=== PATIENT | male | born 1965 | race Two or more races ===

== ENCOUNTER 2021-11-24 12:34 | Emergency (ER) | payer OTHER ==
[2021-11-24 12:47] VITALS: TEMP 98.1; BMI 25.8
[2021-11-24] MEDS ORDERED: ACETAMINOPHEN 1000 MG/100 ML BAG IVPB ONE (13:24)
[2021-11-24] MEDS ORDERED: KETOROLAC TROMETHAMINE 30 MG/1 ML VIAL IVPUSH ONE (13:24)
[2021-11-24] MEDS ORDERED: PANTOPRAZOLE SODIUM 40 MG VIAL IVPB ONE (13:24)
[2021-11-24] MEDS ORDERED: PANTOPRAZOLE SODIUM 40 MG VIAL ONE (13:28)
[2021-11-24] MEDS ORDERED: KETOROLAC TROMETHAMINE 30 MG/1 ML VIAL ONE (13:28)
[2021-11-24] MEDS ORDERED: ACETAMINOPHEN INJECTION 100 ML IVPB ONE (13:28)
[2021-11-24] MEDS ORDERED: PANTOPRAZOLE SODIUM 40 MG/100 ML BAG IVPB ONE (13:30)
[2021-11-24 14:05] LABS: HEMATOCRIT 30.6 % (35.4-49); HEMOGLOBIN 9.6 GM/dL (11.7-16.9); MCH 27.8 pg (25.7-33.7); MCHC 31.5 g/dl (32.0-35.9); MEAN CELL VOLUME 88.2 fl (80-96); MEAN PLT VOLUME 9.4 fl (7.5-11.1); PLATELET COUNT 237 10^3/uL (134-434); RBC 3.47 M/mm3 (4.00-5.60); RDW 18.2 % (11.9-15.9)
[2021-11-24 14:15] LABS: INR 1.3 (0.83-1.09)
[2021-11-24 14:18] LABS: ACTIVATED PTT 32.7 SECONDS (25.2-36.5)
[2021-11-24 14:22] LABS: WHITE BLOOD COUNT 294.5 K/mm3 (4.0-10.0)
[2021-11-24 14:23] LABS: CALCIUM 9.9 mg/dL (8.5-10.1)
[2021-11-24 14:24] LABS: ALBUMIN 4.1 g/dl (3.4-5.0); BLOOD UREA NITROGEN 16.5 mg/dL (7-18); MAGNESIUM 2.5 mg/dL (1.8-2.4)
[2021-11-24 14:27] LABS: CREATININE 1.2 mg/dL (0.55-1.3); PHOSPHOROUS 4.3 mg/dL (2.5-4.9)
[2021-11-24 14:28] LABS: BILIRUBIN,TOTAL 0.7 mg/dL (0.2-1)
[2021-11-24 14:29] LABS: TOT PROT 7.6 g/dl (6.4-8.2)
[2021-11-24 15:40] LABS: ANISOCYTOSIS 1+; MACROCYTOSIS 1+; OVALOCYTE 1+
[2021-11-24 15:51] LABS: BASO % 2.3 % (0-2.0); EOS % 1.2 % (0-4.5); HEMATOCRIT 28.9 % (35.4-49); HEMOGLOBIN 9.2 GM/dL (11.7-16.9); MCH 28.3 pg (25.7-33.7); MCHC 31.8 g/dl (32.0-35.9); MEAN CELL VOLUME 89.1 fl (80-96); MEAN PLT VOLUME 9.5 fl (7.5-11.1); MONO % 4.4 % (3.8-10.2); NEUT % 91.1 % (42.8-82.8); PLATELET COUNT 220 10^3/uL (134-434); RBC 3.24 M/mm3 (4.00-5.60); RDW 18.3 % (11.9-15.9)
[2021-11-24 16:24] LABS: EPI CELLS >36 /uL (0-25.1); HYALINE CASTS 23 /uL (0-3.1); PH,URINE 5.5 (5.0-8.0); URINE APPEARANCE CLOUDY; URINE BACTERIA 4 /uL (0-1359); URINE BILIRUBIN NEGATIVE (NEGATIVE); URINE COLOR YELLOW; URINE GLUCOSE (UA) NEGATIVE (NEGATIVE); URINE KETONE TRACE (NEGATIVE); URINE LEUK ESTERASE NEGATIVE (NEGATIVE); URINE NITRITE NEGATIVE (NEGATIVE); URINE PROTEIN 2+ (NEGATIVE); URINE RBC 3 /uL (0-23.9); URINE WBC 19 /uL (0-25.8)
[2021-11-24 16:26] LABS: WHITE BLOOD COUNT 288.8 K/mm3 (4.0-10.0)
[2021-11-24] MEDS ORDERED: ALLOPURINOL 300 MG TABLET (FP) PO ONE (16:28)
[2021-11-24 16:52] LABS: URIC ACID 8.4 mg/dL (2.6-7.2)
[2021-11-24] MEDS ORDERED: SODIUM CHLORIDE 0.9% 500 ML INFUS.BAG IV ONE (17:22)
[2021-11-24 17:45] LABS: PLATELET ESTIMATE ADEQUATE; SMUDGE CELLS 1
[2021-11-24 17:51] LABS: ANISOCYTOSIS 1+
[2021-11-24 18:16] VITALS: BP 112/65; PULSE 87
== END 2021-11-24 18:16 | disposition short-term general hospital (02) ==
LOC: JER 12:34
PROC: 3E033GC Introduction of Other Therapeutic Substance into Peripheral Vein, Percutaneous Approach (ICD-10-PCS; principal; 2021-11-24)
DX: C95.90 Leukemia, unspecified not having achieved remission (principal)
CPT/HCPCS: 36415; 74177-TC; 80053; 81003; 83615; 83690; 83735; 84100; 84443; 84484; 84550; 85025; 85384; 85610; 85730; 93005; 93010; 99285-25; Q9967

== ENCOUNTER 2022-10-11 18:39 | Emergency (ER) | payer OTHER ==
[2022-10-11 18:58] VITALS: BP 159/67; PULSE 77; RESP 20; TEMP 99.1; BMI 25.8
[2022-10-11] MEDS ORDERED: KETOROLAC TROMETHAMINE 15 MG/ML VIAL IVPUSH ONE (19:41)
[2022-10-11] MEDS ORDERED: KETOROLAC TROMETHAMINE 15 MG/ML VIAL ONE (19:59)
[2022-10-11 20:40] LABS: BASO % 0.2 % (0-2.0); EOS % 0.2 % (0-4.5); HEMATOCRIT 43.2 % (35.4-49); HEMOGLOBIN 14.3 GM/dL (11.7-16.9); LYMPH % 5.4 % (8-40); MCH 29.3 pg (25.7-33.7); MCHC 33.1 g/dl (32.0-35.9); MEAN CELL VOLUME 88.8 fl (80-96); MEAN PLT VOLUME 9.8 fl (7.5-11.1); MONO % 2.1 % (3.8-10.2); NEUT % 92.1 % (42.8-82.8); PLATELET COUNT 172 10^3/uL (134-434); RBC 4.87 M/mm3 (4.00-5.60); RDW 13.5 % (11.9-15.9)
[2022-10-11 20:46] LABS: INR 1.04 (0.83-1.09); PROTHROMBIN TIME (PATIENT) 12.1 SEC (9.7-13.0)
[2022-10-11 20:49] LABS: ACTIVATED PTT 29.8 SECONDS (25.2-36.5)
[2022-10-11 21:00] LABS: CALCIUM 9.3 mg/dL (8.5-10.1)
[2022-10-11 21:01] LABS: ALBUMIN 3.9 g/dl (3.4-5.0)
[2022-10-11 21:04] LABS: CREATININE 0.9 mg/dL (0.55-1.3)
[2022-10-11 21:05] LABS: BILIRUBIN,TOTAL 0.7 mg/dL (0.2-1); TOT PROT 7.2 g/dl (6.4-8.2)
[2022-10-11 21:17] LABS: ANISOCYTOSIS 1+; MACROCYTOSIS 0; OVALOCYTE 1+; TEAR DROP CELLS 1+
[2022-10-11] MEDS ORDERED: ACETAMINOPHEN 325 MG TABLET (FP) PO ONE (21:23)
[2022-10-11] MEDS ORDERED: LIDOCAINE 5% TOPICAL PATCH TP ONE (21:28)
[2022-10-11] MEDS ORDERED: ACETAMINOPHEN 325 MG TABLET (FP) ONE (21:47)
[2022-10-11] MEDS ORDERED: LIDOCAINE 5% TOPICAL PATCH ONE (21:47)
[2022-10-11] MEDS ORDERED: LIDOCAINE PATCH REMOVAL MC SCH (22:00)
[2022-10-11] MEDS ORDERED: diazePAM 5 MG TABLET PO ONE (23:38)
[2022-10-12] MEDS ORDERED: diazePAM 5 MG TABLET ONE (00:11)
== END 2022-10-12 00:46 | disposition home or self-care (01) ==
LOC: JER 18:39
PROC: 3E033GC Introduction of Other Therapeutic Substance into Peripheral Vein, Percutaneous Approach (ICD-10-PCS; principal; 2022-10-11)
DX: M79.604 Pain in right leg (principal)
CPT/HCPCS: 36415; 73552-TC-RT-FY; 73564-TC-RT-FY; 73590-TC-RT-FY; 80053; 85025; 85610; 85730; 93971-TC; 99284-25

== ENCOUNTER 2022-10-14 13:46 | Observation (INO) | payer OTHER ==
[2022-10-14 13:54] VITALS: BMI 25.6
[2022-10-14] MEDS ORDERED: morphine CARPU-JECT 2 MG/1 ML DISP.SYRIN IVPUSH ONE (14:35)
[2022-10-14 15:38] LABS: BASO % 0.3 % (0-2.0); EOS % 0.8 % (0-4.5); HEMATOCRIT 42.4 % (35.4-49); HEMOGLOBIN 14.2 GM/dL (11.7-16.9); LYMPH % 14.7 % (8-40); MCH 29.7 pg (25.7-33.7); MCHC 33.4 g/dl (32.0-35.9); MEAN CELL VOLUME 89.1 fl (80-96); MEAN PLT VOLUME 10.2 fl (7.5-11.1); MONO % 8.1 % (3.8-10.2); NEUT % 76.1 % (42.8-82.8); PLATELET COUNT 166 10^3/uL (134-434); RBC 4.76 M/mm3 (4.00-5.60); RDW 13.4 % (11.9-15.9); WHITE BLOOD COUNT 10.5 K/mm3 (4.0-10.0)
[2022-10-14 15:58] LABS: CALCIUM 8.8 mg/dL (8.5-10.1)
[2022-10-14 15:59] LABS: ALBUMIN 3.6 g/dl (3.4-5.0); BLOOD UREA NITROGEN 24.3 mg/dL (7-18)
[2022-10-14 16:02] LABS: CREATININE 0.8 mg/dL (0.55-1.3)
[2022-10-14 16:04] LABS: BILIRUBIN,TOTAL 0.5 mg/dL (0.2-1); TOT PROT 6.6 g/dl (6.4-8.2)
[2022-10-14] MEDS ORDERED: morphine CARPU-JECT 4 MG/1 ML DISP.SYRIN IVPUSH ONE (18:32)
[2022-10-14] MEDS ORDERED: morphine SULFATE 4 MG/ML VIAL ONE (18:54)
[2022-10-14] MEDS ORDERED: DEXAMETHASONE SOD PHOSPHATE 10 MG/1 ML VIAL IM ONE (19:32)
[2022-10-14] MEDS ORDERED: DEXAMETHASONE SOD PHOSPHATE 10 MG/1 ML VIAL ONE (19:50)
[2022-10-14] MEDS ORDERED: ACETAMINOPHEN 1000 MG/100 ML BAG IVPB PRN (23:09)
[2022-10-15 09:57] LABS: BASO % 0.3 % (0-2.0); HEMATOCRIT 44.2 % (35.4-49); LYMPH % 6.3 % (8-40); MCHC 33.9 g/dl (32.0-35.9); MEAN CELL VOLUME 88.7 fl (80-96); MEAN PLT VOLUME 9.4 fl (7.5-11.1); MONO % 3.6 % (3.8-10.2); NEUT % 89.8 % (42.8-82.8); PLATELET COUNT 188 10^3/uL (134-434); RBC 4.99 M/mm3 (4.00-5.60); RDW 13.3 % (11.9-15.9); WHITE BLOOD COUNT 13.7 K/mm3 (4.0-10.0)
[2022-10-15 10:18] LABS: CALCIUM 8.9 mg/dL (8.5-10.1)
[2022-10-15] MEDS: oxyCODONE HCL 5 MG TABLET PO PRN ×2 (11:13→20:54)
[2022-10-15] MEDS: POLYETHYLENE GLYCOL (HEALTHYLAX) 3350 17 GM PACKET PO SCH ×2 (11:35→22:28)
[2022-10-15 11:38] LABS: ANISOCYTOSIS 0; MACROCYTOSIS 0
[2022-10-15] MEDS: GABAPENTIN 300 MG CAPSULE PO SCH ×2 (12:40→22:28)
[2022-10-15] MEDS ORDERED: GABAPENTIN 100 MG CAPSULE PO SCH (14:00)
[2022-10-16 10:04] LABS: BASO % 0.3 % (0-2.0); EOS % 0.7 % (0-4.5); HEMATOCRIT 42.7 % (35.4-49); HEMOGLOBIN 14.3 GM/dL (11.7-16.9); LYMPH % 16.7 % (8-40); MCH 29.7 pg (25.7-33.7); MCHC 33.6 g/dl (32.0-35.9); MEAN CELL VOLUME 88.5 fl (80-96); MEAN PLT VOLUME 9.8 fl (7.5-11.1); MONO % 9.1 % (3.8-10.2); NEUT % 73.2 % (42.8-82.8); PLATELET COUNT 182 10^3/uL (134-434); RBC 4.82 M/mm3 (4.00-5.60); RDW 13.3 % (11.9-15.9)
[2022-10-16] MEDS: POLYETHYLENE GLYCOL (HEALTHYLAX) 3350 17 GM PACKET PO SCH ×3 (10:11→23:18)
[2022-10-16] MEDS: GABAPENTIN 300 MG CAPSULE PO SCH ×3 (10:11→23:18)
[2022-10-16 10:30] LABS: CALCIUM 8.9 mg/dL (8.5-10.1)
[2022-10-16 10:31] LABS: ALBUMIN 3.6 g/dl (3.4-5.0); BLOOD UREA NITROGEN 24.2 mg/dL (7-18)
[2022-10-16 10:35] LABS: BILIRUBIN,TOTAL 0.8 mg/dL (0.2-1)
[2022-10-16 10:36] LABS: TOT PROT 6.6 g/dl (6.4-8.2)
[2022-10-16] MEDS: oxyCODONE HCL 5 MG TABLET PO PRN (14:05)
[2022-10-17] MEDS: oxyCODONE HCL 5 MG TABLET PO PRN ×2 (04:56→20:00)
[2022-10-17] MEDS: POLYETHYLENE GLYCOL (HEALTHYLAX) 3350 17 GM PACKET PO SCH ×2 (09:57→22:00)
[2022-10-17] MEDS: GABAPENTIN 300 MG CAPSULE PO SCH ×2 (09:57→22:00)
[2022-10-17] MEDS ORDERED: LORazepam 1 MG TABLET PO ONE (20:15)
[2022-10-18] MEDS: GABAPENTIN 300 MG CAPSULE PO SCH ×2 (09:07→22:13)
[2022-10-18] MEDS: POLYETHYLENE GLYCOL (HEALTHYLAX) 3350 17 GM PACKET PO SCH ×2 (09:07→22:13)
[2022-10-18] MEDS ORDERED: IBUPROFEN 800 MG/8 ML IJ IVPB ONE (17:14)
[2022-10-18] MEDS ORDERED: IBUPROFEN 800 MG/8 ML IJ IVPB PRN (17:14)
[2022-10-18] MEDS: PANTOPRAZOLE 40 MG TABLET PO SCH (22:13)
[2022-10-19] MEDS: POLYETHYLENE GLYCOL (HEALTHYLAX) 3350 17 GM PACKET PO SCH (10:45)
[2022-10-19] MEDS: GABAPENTIN 300 MG CAPSULE PO SCH (10:45)
[2022-10-19] MEDS: ACETAMINOPHEN 325 MG TABLET (FP) PO PRN ×2 (10:45→15:55)
[2022-10-19] MEDS: PANTOPRAZOLE 40 MG TABLET PO SCH (10:45)
[2022-10-19 15:35] VITALS: BP 107/62; PULSE 81; RESP 18; TEMP 98.3
== END 2022-10-19 16:00 | disposition home or self-care (01) ==
LOC: JER 13:46 → JERBED 20:14 → J5S 23:29
PROVIDERS: ADMIT Internal Medicine; ATTEND Family Medicine
PROC: 3E033GC Introduction of Other Therapeutic Substance into Peripheral Vein, Percutaneous Approach (ICD-10-PCS; principal; 2022-10-14)
PROC: 3E033NZ Introduction of Analgesics, Hypnotics, Sedatives into Peripheral Vein, Percutaneous Approach (ICD-10-PCS; 2022-10-14)
PROC: 3E023GC Introduction of Other Therapeutic Substance into Muscle, Percutaneous Approach (ICD-10-PCS; 2022-10-14)
DX: M79.661 Pain in right lower leg (principal); C92.10 Chronic myeloid leukemia, BCR/ABL-positive, not having achieved remission; R26.2 Difficulty in walking, not elsewhere classified; Z29.8 Encounter for other specified prophylactic measures; I80.9 Phlebitis and thrombophlebitis of unspecified site; M54.30 Sciatica, unspecified side
CPT/HCPCS: 0241U-QW; 36415; 72131-TC; 73719; 80048; 80053; 85025; 86140; 93971-TC; 96372; 96374; 96376; 97116-GP; 99285-25; G0378; J1100

== ENCOUNTER 2024-01-12 10:10 | Emergency (ER) | payer OTHER ==
[2024-01-12 10:15] VITALS: BP 150/72; PULSE 75; RESP 18; TEMP 97.5; BMI 24.3
[2024-01-12] MEDS ORDERED: KETOROLAC TROMETHAMINE 15 MG/ML VIAL ONE (10:59)
[2024-01-12] MEDS ORDERED: METHOCARBAMOL 500 MG TABLET ONE (10:59)
[2024-01-12] MEDS: METHOCARBAMOL 500 MG TABLET PO ONE (11:13)
[2024-01-12] MEDS: KETOROLAC TROMETHAMINE 15 MG/ML VIAL IM ONE (11:13)
[2024-01-12 11:20] LABS: BASO % 0.5 % (0-2.0); EOS % 1.6 % (0-4.5); HEMATOCRIT 44.5 % (35.4-49); HEMOGLOBIN 14.7 GM/dL (11.7-16.9); LYMPH % 12.7 % (8-40); MCH 28.6 pg (25.7-33.7); MCHC 33.1 g/dl (32.0-35.9); MEAN CELL VOLUME 86.5 fl (80-96); MONO % 6.3 % (3.8-10.2); NEUT % 78.9 % (42.8-82.8); PLATELET COUNT 143 10^3/uL (134-434); RBC 5.15 M/mm3 (4.00-5.60); WHITE BLOOD COUNT 8.7 K/mm3 (4.0-10.0)
[2024-01-12 11:45] LABS: POTASSIUM 4.4 mmol/L (3.5-5.1)
[2024-01-12 11:48] LABS: ALBUMIN 3.8 g/dl (3.4-5.0); BLOOD UREA NITROGEN 15.8 mg/dL (7-18); CALCIUM 8.7 mg/dL (8.5-10.1)
[2024-01-12 11:51] LABS: CREATININE 0.9 mg/dL (0.55-1.3)
[2024-01-12 11:53] LABS: BILIRUBIN,TOTAL 0.9 mg/dL (0.2-1); TOT PROT 7.2 g/dl (6.4-8.2)
== END 2024-01-12 14:41 | disposition home or self-care (01) ==
LOC: JER 10:10
PROC: 3E023GC Introduction of Other Therapeutic Substance into Muscle, Percutaneous Approach (ICD-10-PCS; principal; 2024-01-12)
DX: M54.32 Sciatica, left side (principal); C92.10 Chronic myeloid leukemia, BCR/ABL-positive, not having achieved remission; M79.605 Pain in left leg
CPT/HCPCS: 36415; 80053; 85025; 93971-TC; 99284-25